=== PATIENT | female | born 1965 | race Caucasian/White ===

== ENCOUNTER 2016-07-09 19:48 | Emergency (ER) | payer MEDICAID ==
[~2016-07-09] VITALS: Ht 170.2 cm; Wt 65.2 kg
[2016-07-09 21:00] LABS: HCG UR OBC PASS
[2016-07-09 21:41] VITALS: BP 127/84
== END 2016-07-09 21:45 | disposition home or self-care (01) ==
LOC: ED 21:00
DX: N30.01 Acute cystitis with hematuria (principal)
CPT/HCPCS: 81001; 81025; 87077; 87086; 87186; 99284

== ENCOUNTER 2016-08-24 02:53 | Emergency (ER) | payer MEDICAID ==
[~2016-08-24] VITALS: Ht 170.2 cm; Wt 61.4 kg
[2016-08-24] MEDS ORDERED: ONDANSETRON ODT 4 MG ONE (03:35)
[2016-08-24] MEDS ORDERED: HYDROmorphone 1 MG/ML, 1ML ONE (03:35)
[2016-08-24] MEDS ORDERED: ONDANSETRON ODT 4 MG PO ONE (04:00)
[2016-08-24] MEDS ORDERED: HYDROmorphone 1 MG/ML, 1ML IM ONE (04:00)
[2016-08-24] MEDS ORDERED: CLINDAMYCIN PMX 900MG/50ML 50 ML IV ONE (04:00)
[2016-08-24] MEDS ORDERED: CLINDAMYCIN 150 MG/ML, 6ML IM ONE (04:00)
[2016-08-24 04:09] VITALS: BP 164/88
== END 2016-08-24 04:20 | disposition home or self-care (01) ==
LOC: ED 03:43
DX: K02.9 Dental caries, unspecified (principal); I10 Essential (primary) hypertension
CPT/HCPCS: 96372; 99284; J1170; Q0162

== ENCOUNTER 2017-09-28 09:53 | Emergency (ER) | payer MEDICAID ==
[~2017-09-28] VITALS: Ht 170.2 cm; Wt 96.1 kg
[2017-09-28 09:55] VITALS: BP 167/101
[2017-09-28] MEDS ORDERED: IBUP200C5 PO (10:29)
[2017-09-28 10:46] LABS: CULTURE INDICATED? YES; MICROSCOPIC INDICATED
[2017-09-28] MEDS ORDERED: CEFTRIAXONE 1,000 MG ONE (11:18)
[2017-09-28] MEDS ORDERED: KETOROLAC 30 MG/1 ML ONE (11:18)
[2017-09-28] MEDS ORDERED: KETOROLAC 60 MG/2 ML IM ONE (12:00)
[2017-09-28] MEDS ORDERED: CEFTRIAXONE 1,000 MG IM ONE (12:00)
== END 2017-09-28 11:33 | disposition home or self-care (01) ==
LOC: ED 11:24
DX: N30.90 Cystitis, unspecified without hematuria (principal); I10 Essential (primary) hypertension
CPT/HCPCS: 81001; 87077; 87086; 96372; 99284; J0696; J1885; 87186